=== PATIENT | male | born 1940 | race Caucasian/White ===

== ENCOUNTER 2016-10-03 13:55 | Emergency (ER) | payer MEDICARE, BC ==
[2016-10-03 14:20] VITALS: BP 147/79
--- NOTE | 2016-10-03 14:27 | EDM.PDOC ---
[id number] Complaint: buttock pain Time Seen by Provider: 10/03/16 14:15 Source of Information: Reports: Patient History Limitations: Denies: Altered Mental Status, Intoxication, Uncooperative - History of Present Illness INITIAL COMMENTS - FREE TEXT/NARRATIVE: This 75 yr male presents with pain to left lower pelvis area, fell in field at home. States severe pain. is with pt. States pt has pain with ambulation and has used crutches to walk. Using wheelchair to ER. Pt is talkative and responding appropriately, in no acute distress. He states he didn 't fall onto anything in environment and didn't hit his head. He first fell forward onto his chest and states pain from falling onto his cell phone in his front pocket. States he isn't concerned with this and is just a little bruised feeling from this. When he was getting to stand up, then he fell backwards onto his bottom and started with this severe pain to lower pelvis area, making ambulation difficult related to the pain. Onset: Today Onset Date: 10/03/16 Duration: Getting Worse Location: Reports: Back, Other (coccyx area to left side, radiates to back) Quality: Reports: Stabbing Severity: Severe Improves with: Reports: Cold Therapy, Immobilization, Rest Worsens with: Reports: Movement Associated Symptoms: Reports: No Other Symptoms Left Sacral Pain Score (Numeric/FACES): 10 - Related Data Allergies Allergy/AdvReac Type Severity Reaction Status Date / Time No Known Allergies Allergy Verified 03/04/15 12:32 Home Meds: Home Meds . [No Known Home Meds] 07/12/16 [History] Past Medical History HEENT History: Reports: Other (See Below) Other HEENT History: Reading Glasses Genitourinary History: Reports: Prostate Disorder Musculoskeletal History: Reports: Arthritis, Fracture - Past Surgical History Musculoskeletal Surgical History: Reports: Other (See Below) Social & Family History - Family History HEENT: Reports: None Endocrine/Metabolic: Reports: Diabetes, type II Oncologic: Reports: Bone - Tobacco Use Smoking Status *Q: Never Smoker - Recreational Drug Use Recreational Drug Use: No Review of Systems - Review of Systems Review Of Systems: See Below Constitutional: Reports: No Symptoms. Denies: Chills, Fever Eyes: Reports: No Symptoms. Denies: Blurred Vision, Pain Ears: Reports: No Symptoms. Denies: Dizziness, Pain Nose: Reports: No Symptoms Mouth/Throat: Reports: No Symptoms. Denies: Muffled Voice, Difficulty Swallowing Respiratory: Reports: No Symptoms. Denies: Shortness of Breath, Cough Cardiovascular: Reports: No Symptoms. Denies: Chest Pain, Syncope GI/Abdominal: Reports: No Symptoms. Denies: Abdominal Pain, Nausea Genitourinary: Reports: No Symptoms Musculoskeletal: Reports: Muscle Pain, Muscle Stiffness, Other (Pain to lower pelvic area, pain to left chest from falling onto cell phone in pocket) Skin: Reports: No Symptoms Neurological: Reports: No Symptoms. Denies: Confusion, Dizziness Psychiatric: Reports: No Symptoms ED EXAM, GENERAL - Physical Exam Exam: See Below Free Text/Narrative:: This 75 yr male presents with pain to lower pelvic area after a fall at his home in the field. He first fell onto his chest. States his cell phone was in his front pocket and has pain/bruising to chest from this. After this he stumbled and fell backwards onto bottom and notes severe pain to left lower pelvic area/ischium. Exam Limited By: No Limitations General Appearance: Alert Respiratory/Chest: No Respiratory Distress, Lungs Clear Cardiovascular: Regular Rate, Rhythm, No Murmur Back Exam: Other (Pain with deep palpation to left ischium, tenderness to light palpation to left chest) Extremities: Other (Pain with standing and walking, using crutches to ambulate and wheelchair) Neurological: Alert, Oriented, Normal Cognition. No: Normal Gait Psychiatric: Normal Affect Skin Exam: Warm, Dry, Normal Color Course - Vital Signs Last Recorded V/S: Last Vital Signs Temp 97.8 F 10/03/16 14:14 Pulse 68 10/03/16 14:14 Resp 20 10/03/16 14:14 BP 147/79 H 10/03/16 14:14 Pulse Ox 97 10/03/16 14:14 - Orders/Labs/Meds Orders: Active Orders 24 hr Category Date Time Status Ready for Discharge [RC] PER UNIT ROUTINE Care 10/03/16 15:47 Active Hip Min 2V or 3V w Pelvis Lt [CR] Stat Exams 10/03/16 14:16 Taken - Radiology Interpretation Free Text/Narrative:: Xray completed bialteral hip with pelvis. No acute bone abnormality noted per quick read of x-ray per radiologist. 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 Soft tissue calcification to left femoral head. - Re-Assessments/Exams Free Text/Narrative Re-Assessment/Exam: Reviewed x-ray report with pt. No fractures noted. DJD of SI joint noted. Recommend continued use of ice to area at home 3-4x/day, Ibuprofen 800 mg PO tid or Aleve 1 tab bid for pain. Rest area and use crutches for support. Return if symptoms worsen or don't improve. 10/04/16 07:46 Departure - Departure Time of Disposition: 15:38 Disposition: Home, Self-Care 01 Condition: Good Clinical Impression: Inflammation of left sacroiliac joint, Pain pelvic - Discharge Information Instructions: Ibuprofen tablets and capsules, Arthritis, Naproxen delayed- release tablets, Calcium Pyrophosphate Deposition Referrals: PCP,None [Primary Care Provider] - Forms: ED Department Discharge Care Plan Goals: Apply ice to area 20 minutes of an hour 3 to 4 x day as needed. Take Ibuprofen 800mg 3 x day or aleve (naproxen) two times a day. Take with food. Return to clinic if no improvement in two weeks or if worsens. - My Orders Last 24 Hours: My Active Orders 10/03/16 14:16 Hip Min 2V or 3V w Pelvis Lt [CR] Stat 10/03/16 15:47 Ready for Discharge [RC] PER UNIT ROUTINE - Assessment/Plan Last 24 Hours: My Active Orders 10/03/16 14:16 Hip Min 2V or 3V w Pelvis Lt [CR] Stat 10/03/16 15:47 Ready for Discharge [RC] PER UNIT ROUTINE
--- NOTE | 2016-10-04 09:07 | CR ---
DATE OF SERVICE: 10/03/2016 CLINICAL DATA: PAIN IN LEFT SIDE OF ISCHIUM AFTER FALL. PELVIS AND LEFT HIP There is diffuse osteopenia. 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 There are degenerative changes involving the SI joints bilaterally, left greater than right. There are degenerative changes involving the symphysis pubis. There is chondrocalcinosis involving the left hip joint. No acute fracture or dislocation. There is a small sclerotic density involving the intertrochanteric region of the left proximal femur. This may be a bone island. The possibility of blastic metastatic disease should at least be considered. The exam is otherwise negative. [id number] MTDD
== END 2016-10-03 16:00 | disposition home or self-care (01) ==
LOC: LB.ED 13:55
DX: M46.1 Sacroiliitis, not elsewhere classified (principal)
CPT/HCPCS: 73502-LT; 99283

== ENCOUNTER 2023-10-16 12:27 | Emergency (ER) | payer MEDICARE, BC ==
[2023-10-16 12:36] VITALS: BP 150/77; PULSE 66
== END 2023-10-16 13:36 | disposition home or self-care (01) ==
LOC: LB.ED 12:27
DX: S93.492A Sprain of other ligament of left ankle, initial encounter (principal); W50.2XXA Accidental twist by another person, initial encounter
CPT/HCPCS: 73610-RT; 99283